=== PATIENT | female | born 1955 | race Caucasian/White ===

== ENCOUNTER 2019-04-25 11:53 | Emergency (ER) | payer BC ==
--- NOTE | 2019-04-25 12:00 | UC ---
Cardiac HPI - HPI Summary HPI Summary: 64 yo female presents, accompanied by , with various symptoms. She tells me that she has had chest pain "all the time" for months, but today became sharp on the right side around 1100. She also complains of epigastric pain, but is unable to describe what this feels like or when it began. She also complains of right thigh pain that is worse with movement. Also complains of b/l hand swelling that began this morning. She denies headache, dizziness, numbness, tingling, SOB, n/v/d/c, dysuria, back pain. - History of Current Complaint Stated Complaint: CHEST PAIN Time Seen by Provider: 04/25/19 11:59 Hx Obtained From: Patient Initial Severity: Moderate Current Severity: Moderate Pain Intensity: 5 - Allergy/Home Medications Allergies/Adverse Reactions: Allergies Allergy/AdvReac Type Severity Reaction Status Date / Time MS Metformin [Metformin] Allergy Diarrhea Verified 09/17/18 08:46 pollen extracts Allergy Runny Nose Verified 09/17/18 08:46 PMH/Surg Hx/FS Hx/Imm Hx Endocrine History: Diabetes, Dyslipidemia Cardiovascular History: Hypertension Psychological History: Anxiety - Surgical History Surgical History: Yes Surgery Procedure, Year, and Place: WISDOM TEETH - Family History Known Family History: Negative: Cardiac Disease, Hypertension, Diabetes - Social History Lives: With Family Alcohol Use: None Substance Use Type: None Smoking Status (MU): Never Smoked Tobacco Review of Systems All Other Systems Reviewed And Are Negative: No Constitutional: Positive: Negative Skin: Positive: Negative Eyes: Positive: Negative ENT: Positive: Negative Respiratory: Positive: Negative Cardiovascular: Positive: Chest Pain Gastrointestinal: Positive: Abdominal Pain Neurological: Positive: Negative Psychological: Positive: Negative Physical Exam - Summary Physical Exam Summary: GENERAL: NAD. WDWN. No pain distress. SKIN: No rashes, sores, or open wounds. NECK: Supple. Nontender. No lymphadenopathy. CHEST: CTAB. No r/r/w. No accessory muscle use. Breathing comfortably and in no distress. CV: RRR. Pulses intact. Brisk cap refill. ABDOMEN: Soft. Mild TTP epigastric region. No distention or guarding. No CVA tenderness. Bowel sounds present MSK: FROM and 5/5 strength throughout. No edema. NEURO: Alert. PSYCH: Age appropriate behavior. Triage Information Reviewed: Yes Vital Signs: Vital Signs: Temp Pulse Resp BP Pulse Ox 98.2 F 96 20 176/73 97 04/25/19 12:05 04/25/19 12:05 04/25/19 12:05 04/25/19 12:05 04/25/19 12:05 Vital Signs Reviewed: Yes Diagnostics - EKG Summary of EKG Findings: 95bpm NSR. No STEMI as read by Dr. Pappas. - Assessment/Plan Course Of Treatment: POC glucose 113. EKG as above. Given her diabetes, HTN, HLD, and multiple vague complaints including chest pain and epigastric pain - I recommended pt go to the ER for further evaluation for possible ACS. She declined ambulance transfer and her with her will drive her. - Clinical Impression Provider Diagnosis: Chest pain, Epigastric pain Discharge ED - Sign-Out/Discharge Documenting (check all that apply): Patient Departure All imaging exams completed and their final reports reviewed: No Studies - Discharge Plan Condition: Stable Disposition: HOME-RECOMMEND TO ED Referrals: Ilri Newell MD [Primary Care Provider] - Additional Instructions: Please go to the ER for further evaluation of your chest pain - Billing Disposition and Condition Condition: STABLE Disposition: Home-Recommend to ED
--- OUTSIDE RECORDS SUMMARY | 2019-04-25 12:00 | XMS REPORT | Continuity of Care Document ---
:1955 External Reference #:[id number] Author Name Manuel Jacob MD (transmitted by agent of provider Radha Santa) Address [address] [place] [id number] Care Team Providers Name Role Phone Ilir Newell MD - Family Care Team Information [employer] [phone] Medicine Problems Active Problems Provider Date Pain in calf Romie Ely MD Onset: 06/23/2016 Lumbar radiculopathy Romie Ely MD Onset: 06/23/2016 Social History Type Date Description Comments Sex Unknown ETOH Use Rarely consumes alcohol Tobacco Use Start: Unknown Patient has never smoked Recreational Drug Use Denies Drug Use Smoking Status Reviewed: 04/19/19 Patient has never smoked Exercise Type/Frequency Exercises regularly 4 days per week, [employer], 30 minute circuit, and 20 minutes of walking. 1 day at the [facility] for aerobics, pt starting a weigh loss program at [facility] . Allergies, Adverse Reactions, Alerts Active Allergies Reaction Severity Comments Date Metformin upset stomach, diarrhea 04/04/2016 Ibuprofen 08/13/2018 Medications Active Medications SIG Qnty Indications Ordering Date Provider Pioglitazone HCL 1 by mouth every 30tabs E11.65 Manuel Jacob, 15mg Tablets day MD Martinez Trulicity inject 1 dose 2ml E11.65 Manuel Jacob, 1.5mg/0.5ML subcutaneously once MD Martinez Solution Pen-Inject weekly Rosuvastatin Calcium 1 tablet once daily 30tabs Manuel Jacob, 20mg at bedtime. MD Martinez Tablets Lisinopril take by mouth daily 30tabs I10 Manuel Jacob, 10mg Tablets MD Martinez Onetouch Ultra Blue test once a day and 50units Manuel Jacob, Strips as needed 9 Zyrtec 1 po qd prn 30tabs Unknown 10mg Tablets 0 Toprol XL 1 po qd 30tabs Unknown 200mg Tablets ER 0 24HR Lexapro 1 tablet daily 90tabs Unknown 10mg Tablets 0 Calcium 2 po qd Unknown 500mg 0 Vitamin C 2 po qd 60units Unknown 500mg Chewtabs 0 Hydrochlorothiazide 1 tablet daily Unknown 25mg 0 Tablets Amlodipine Besylate Ilir Newell 10mg Dayron MD 0 Tablets Mrvze-3-[id number] Ethyl take 2 capsules Unknown Esters twice a day 0 1gm Capsules Ibuprofen as needed Unknown 200mg Tablets 0 Immunizations Description No Information Available Vital Signs Date Vital Result Comment 04/19/2019 12:59pm Height 63 inches 5'3" Weight 181.00 lb w/o shoes Heart Rate 91 /min BP Systolic Sitting 177 mmHg BP Diastolic Sitting 96 mmHg BMI (Body Mass Index) 32.1 kg/m2 08/13/2018 12:42pm Height 63 inches 5'3" Weight 209.00 lb w/shoes Heart Rate 90 /min BP Systolic Sitting 144 mmHg BP Diastolic Sitting 79 mmHg BMI (Body Mass Index) 37.0 kg/m2 Results Description No Information Available Procedures Description No Information Available Medical Devices Description No Information Available Encounters Description No Information Available Assessments Date Code Description Provider 04/19/2019 E11.65 Type 2 diabetes mellitus with hyperglycemia Manuel Jacob MD 04/19/2019 E78.5 Hyperlipidemia, unspecified Manuel Jacob MD 04/19/2019 I10 Essential (primary) hypertension Manuel Jacob MD Plan of Treatment 04/19/2019 - Manuel Jacob MDE11.65 Type 2 diabetes mellitus with hyperglycemiaInstructions:1. Continue current medications as prescribed. 2. Restart lisinopril 10mg daily for blood pressure. 3. Stop checking blood glucose daily. 4. We have refilled your medications for 6 months. 5. Follow- upwith Dr. Newell.E78.5 Hyperlipidemia, [id number] Essential (primary) hypertension Functional Status Description No Information Available Mental Status Description No Information Available Referrals Description No Information Available
--- OUTSIDE RECORDS SUMMARY | 2019-04-25 12:00 | XMS REPORT | Summary of Care ---
:1955 Author Organization [facility] Address [address] [facility] [place] [address] Care Team Providers Name Role Phone Ilir Newell MD Primary Care Provider Reason for Visit Reason Comments Follow Up Encounter Details Date Type Department Care Team Description 04/05/2019 Office Visit [facility], Non morbid obesity, unspecified obesity type (Primary Dx); Bariatrics - Nedra [place] MD Body mass index (BMI) of 34.0-34.9 in adult; [address] [facility] [address] [facility] Diabetes mellitus without complication (HCC); Street [place] [address] Essential hypertension [place] [address] Allergies Active Allergy Reactions Severity Noted Date Comments Flavoring Agent Rash 08/05/2018 Environmental Other 11/03/2018 Cough, runny nose Metformin GI Reaction 08/05/2018 documented as of this encounter (statuses as of 04/05/2019) Medications Medication Sig Dispensed Refills Start Date End Date Status [place]-3 1000 MG Oral Cap Take 2 Tabs by 0 Active mouth TWICE DAILY. escitalopram (LEXAPRO) Take 10 mg by 0 Active 10 MG Oral Tab mouth NEEDED. Rosuvastatin Calcium Take 20 mg by 0 Active (CRESTOR) 20 MG Oral Tab mouth DAILY. Coenzyme Q10 (CO Q 10 Take 1,000 mg by 0 Active PO) mouth DAILY. Lactobacillus Take by mouth 0 Active (ACIDOPHILUS PO) NEEDED. POTASSIUM GLUCONATE PO Take 99 mg by 0 Active mouth DAILY. amLodipine (NORVASC) 10 Take 10 mg by 0 Active MG Oral Tab mouth DAILY. lisinopril (PRINIVIL, Take 10 mg by 0 Active ZESTRIL) 10 MG Oral Tab mouth DAILY. pioglitazone (ACTOS) 15 Take 15 mg by 0 Active MG Oral Tab mouth DAILY. Metoprolol Succinate 200 Take 200 mg by 0 Active MG Oral Capsule ER 24 mouth DAILY. Hour Sprinkle CALCIUM PO Take 1,000 mg by 0 Active mouth DAILY. MAGNESIUM PO Take 1,000 mg by 0 Active mouth DAILY. Ascorbic Acid (VITAMIN Take 1,000 mg by 0 Active C) 100 MG Oral Chew Tab mouth DAILY. Cyanocobalamin (B-12) Take 1,000 mcg 0 Active 1000 MCG Oral Cap by mouth DAILY. Dulaglutide (TRULICITY) Inject beneath 0 Active 0.75 MG/0.5ML the skin. Subcutaneous Solution Pen-injector documented as of this encounter (statuses as of 04/05/2019) Active Problems No known active problemsdocumented as of this encounter (statuses as of 2018) Social History Tobacco Use Types Packs/Day Years Used Date Never Smoker Smokeless Tobacco: Never Used Alcohol Use Drinks/Week oz/Week Comments Not Currently Sex Assigned at Date Recorded Not on file Job Start Date Occupation Industry Not on file Not on file Not on file Travel History Travel Start Travel End No recent travel history available. documented as of this encounter Last Filed Vital Signs Vital Sign Reading Time Taken Comments Blood Pressure 122/68 04/05/2019 9:30 AM EST Pulse 80 04/05/2019 9:30 AM EST Temperature - - Respiratory Rate - - Oxygen Saturation 95% 04/05/2019 9:30 AM EST Inhaled Oxygen Concentration - - Weight 82.6 kg (182 lb) 04/05/2019 9:30 AM EST Height 154.9 cm (5' 1") 04/05/2019 9:30 AM EST Body Mass Index 34.39 04/05/2019 9:30 AM EST documented in this encounter Progress Notes Jaylen Munoz MD - 04/05/2019 10:40 AM EST PATIENT: Joyce Rodriguez : 1955 DATE OF SERVICE: 04/05/2019 REFERRING PRACTITIONER: Self-Referred PRIMARY CARE PROVIDER: Ilir Newell Chief Complaint Patient presents with Follow Up HISTORY OF PRESENT ILLNESS: Joyce Rodriguez is a 64-y.o. female who presents for follow up treatment of obesity and related diseases. She reports having had bronchitis for the past month or so. Her dietary compliance as reported is fair.. The patient is not skipping meals. She is keeping aconsistent food journal. She is eating about 1000 calories per day. She Is not generally getting adequate protein. Food choices are reasonable . She is not eating many veggies. The patient reports swimming once per week, using bicycle and doing some weight training at the gym. She gets to the gym about 4 times per week. Past Medical History: Diagnosis Date Arthritis Back pain Depression with anxiety Diabetes mellitus (HCC) High cholesterol Hypertension No past surgical history on file. Family History Problem Relation Age of Onset Hypertension Mother High Cholesterol Mother Stroke Mother High Cholesterol Father Stroke Father Social History Tobacco Use Smoking status: Never Smoker Smokeless tobacco: Never Used Substance Use Topics Alcohol use: Not Currently Current Outpatient Medications Medication Sig amLodipine (NORVASC) 10 MG Oral Tab Take 10 mg by mouth DAILY. Ascorbic Acid (VITAMIN C) 100 MG Oral Chew Tab Take 1,000 mg by mouth DAILY. CALCIUM PO Take 1,000 mg by mouth DAILY. Coenzyme Q10 (CO Q 10 PO) Take 1,000 mg by mouth DAILY. Cyanocobalamin (B-12) 1000 MCG Oral Cap Take 1,000 mcg by mouth DAILY. Dulaglutide (TRULICITY) 0.75 MG/0.5ML Subcutaneous Solution Pen-injector Inject beneath the skin. escitalopram (LEXAPRO) 10 MG Oral Tab Take 10 mg by mouth NEEDED. Lactobacillus (ACIDOPHILUS PO) Take by mouth NEEDED. lisinopril (PRINIVIL, ZESTRIL) 10 MG Oral Tab Take 10 mg by mouth DAILY. MAGNESIUM PO Take 1,000 mg by mouth DAILY. Metoprolol Succinate 200 MG Oral Capsule ER 24 Hour Sprinkle Take 200 mg by mouth DAILY. [place]-3 1000 MG Oral Cap Take 2 Tabs by mouth TWICE DAILY. pioglitazone (ACTOS) 15 MG Oral Tab Take 15 mg by mouth DAILY. POTASSIUM GLUCONATE PO Take 99 mg by mouth DAILY. Rosuvastatin Calcium (CRESTOR) 20 MG Oral Tab Take 20 mg by mouth DAILY. No current facility-administered medications for this visit. Allergies Allergen Reactions Butter Flavor [Flavoring Agent] Rash Environmental Other Cough, runny nose Metformin GI Reaction REVIEW OF SYSTEMS: CONSTITUTIONAL: Negative RESPIRATORY: Negative CARDIOVASCULAR: Negative GASTROINTESTINAL: Negative. GENITOURINARY:Negative MUSCULOSKELETAL: Negative NEUROLOGICAL: Negative. PSYCH: Negative. There are no exam notes on file for this visit. PHYSICAL EXAMINATION: VITALS: BP 122/68 | Pulse 80 | Ht 5' 1" (1.549 m) | Wt 182 lb (82.6 kg) | SpO2 95% | No | BMI 34.39 kg/m BODY COMPOSITION AND MEASUREMENTS: BODY COMPOSITION HISTORY Body Composition 01/07/2019 03/08/2019 04/05/2019 Weight 186 lb 9.6 oz 194 lb 11.2 oz 182 lb LEAN BODY MASS (lbs) 95.7 96.3 91.3 BODY FAT MASS (lbs) 90.9 98.4 90.7 BMI (Calculated) 35.26 36.79 34.39 Body Fat % 48.7 50.6 49.9 BASAL METABOLIC RATE (kcal) 1307 1313 1263 EXCESS BODY FAT (lbs) 62.4 69.7 63.5 VISCERAL FAT AREA (cm2) 220.2 234.1 224.4 LEAN BODY MASS DEFICIT (lbs) 0 0 0 NECK CIRCUMFERENCE (in) - - - WAIST CIRCUMFERENCE (in) - - - HIP CIRCUMFERENCE (in) - - - GENERAL: No acute distress; obese PULMONARY: Clear to auscultation bilaterally CARDIOVASCULAR: Regular rate and rhythm; no murmurs, no rubs, no gallops ABDOMEN: Soft, non tender, no organomegaly, no masses appreciated. truncal adiposity present MUSCULOSKELETAL: no clubbing, cyanosis or edema NEUROLOGICAL: Alert and oriented x 3 PSYCH: Appropriate mood and affect LABORATORY STUDIES: No results found for: TRIG, HDL, LDL, CCRP, VITD, TSH IMPRESSION: ICD-9-CM ICD-10-CM 1. Non morbid obesity, unspecified obesity type 278.00 E66.9 2. Body mass index (BMI) of 34.0-34.9 in adult V85.34 Z68.34 3. Diabetes mellitus without complication (HCC) 250.00 E11.9 4. Essential hypertension 401.9 I10 PLAN: Joyce Rodriguez is a 64-y.o. year-old female with Body mass index is 34.39 kg/m.. Obesity Class I Weight is decreased 12.7 lbs in the interim; this reflects a(n) decrease in lean body mass of 5.0 lbs (3.7 lbs of which was total body water) and decrease in fat mass of 7.7 lbs Continue with 1100 calories per day; 30 g protein per meal; 30 g carbs per meal Increasing protein and veggie intake discussed with patient Moderate intensity exercise for 30 minutes, at least 5 days per week Diabetes No lows Carb restriction and exercise as above No medication changes Hypertension Well controlled No medication changes at this time Follow up: 4 weeks Author: Jaylen Munoz MD 04/05/2019 11:35 documented in this encounter Plan of Treatment Date Type Specialty Care Team Description 05/04/2019 Office Visit Bariatrics Jaylen Munoz MD [address] [place] [address] [phone] Health Maintenance Due Date Last Done Comments Diabetic Eye Exam 1955 MEDICARE ANNUAL WELLNESS VISIT 1955 DTaP/Tdap/Td Vaccines (1 - 1964 Tdap) HIV SCREENING 1968 FOOT EXAM 1971 HEPATITIS C SCREENING 1993 MAMMOGRAM (SCREENING) 1993 Colonoscopy 2003 ZOSTER IMMUNIZATION SERIES (1 2003 of 2) FALL RISK ASSESSMENT 2018 OSTEOPOROSIS SCREENING 2018 PNEUMOCOCCAL 65+YRS (1 of 2 - 2018 PCV13) INFLUENZA VACCINE (#1) 2018 HEMOGLOBIN A1C 02/24/2019 11/24/2018, 09/06/2018 DEPRESSION SCREENING 08/21/2019 08/20/2018 LIPID DISORDER SCREENING 08/21/2019 08/20/2018 HEPATITIS A IMMUNIZATION Aged Out No longer eligible based SERIES on patient's age to complete this topic HPV IMMUNIZATION SERIES Aged Out No longer eligible based on patient's age to complete this topic MENINGOCOCCAL VACCINE IMM Aged Out No longer eligible based on patient's age to complete this topic documented as of this encounter Results Not on filedocumented in this encounter Visit Diagnoses Diagnosis Non morbid obesity, unspecified obesity type Body mass index (BMI) of 34.0-34.9 in adult Body Mass Index 34.0-34.9, adult Diabetes mellitus without complication (HCC) Type II or unspecified type diabetes mellitus without mention of complication, not stated as uncontrolled Essential hypertension Unspecified essential hypertension documented in this encounter Guarantor Name Account Type Relation to Date of Phone Billing Address Patient Tahir Rodriguez Personal/Famil 1955 [phone] [facility] [address] [phone] [place], [place] [address] (Work) [id number] documented as of this encounter
--- OUTSIDE RECORDS SUMMARY | 2019-04-25 12:00 | XMS REPORT ---
:1955 Author Organization [facility] Care Team Providers Name Role Phone JUDY NAQVI Primary Care Physician Unavailable Allergies, Adverse Reactions, Alerts Allergy Code CodeSystem Reaction Severity Criticality Status Start Substance Date Moderate Medications Medication Medication Medication Start Stop Route Dose Status Fill Code CodeSystem Date Date Instructions escitalopram 996947 RxNorm 2018-05 oral 10 mg active for 30 oxalate -20 tablet day(s) Abilify 007579 RxNorm 2018-08 oral 10 mg active for 30 -03 8-01 tablet day(s) Problems Problem Name Code CodeSystem Alternate Alternate Start End Status Narrative Code CodeSystem Date Date Schizoaffective 82764252 SNOMED-CT Active disorder, manic 3-22 type Relevant diagnostic tests/laboratory data Narrative No Information Procedures Procedure Code CodeSystem Target Date of Status Service Device Device Device Name Site Procedure Delivery Code Name UID Location Psychotherap [id number] SNOMED-CT () 2018-07-28 complete Mental y, 45 04 d Health- minutes with [facility] patient [address], [id number] [phone] Psychotherap [id number] SNOMED-CT () 2018-11-08 complete Mental y, 45 04 d Health- minutes with [facility] patient [address], [id number] [phone] Psychotherap [id number] SNOMED-CT () 2019-02-07 complete Mental y, 45 04 d Health- minutes with [facility] patient [address], [phone] Office or [id number] SNOMED-CT () 2019-04-04 complete Mental other 7 d Health- outpatient [facility] visit for [address], of an [facility] established [id number] patient, [id number] which requires at least 2 of these 3 orr components: An expanded problem focused history; An expanded problem focused examination; Medical decision making of low Office or [id number] SNOMED-CT () 2018-08-13 complete Mental other 7 d Health- outpatient Kyra visit for [address], [facility], established [phone] patient, [phone] which requires at least 2 of these 3 orr components: An expanded problem focused history; An expanded problem focused examination; Medical decision making of low Encounters/Encounter Diagnoses Encounter Encounter Diagnosis Diagnosis Name Diagnosis Date of Service Name Code Code CodeSystem Diagnosis Delivery Location Established [id number] Schizoaffective SNOMED-CT 2019-04-04 Behavioral patient 15-29 disorder, manic Health [facility] type Clinic [address] [place] [address], [phone] Vital Signs No Information Social History Element Description Description Start End Code CodeSystem AdditionalInfo Date Date SexAssignedAtBirth Female 1954-04 F AdministrativeGender 05-07 Hospital Discharge Instructions Reason For Referral Medical Equipment FDA Assessments
--- OUTSIDE RECORDS SUMMARY | 2019-04-25 12:01 | XMS REPORT | Summary of Care ---
:1955 Author Organization [facility] Address [address] [facility] [place] [address] Care Team Providers Name Role Phone Ilir Newell MD Primary Care Provider Reason for Visit Reason Comments Follow Up Encounter Details Date Type Department Care Team Description 03/08/2019 Office Visit [facility], Morbid obesity, unspecified obesity type (HCC) (Primary Dx); Bariatrics - Nedra York MD Body mass index (BMI) of 36.0-36.9 in adult; [address] [facility] [address] [facility] Diabetes mellitus type 2, uncontrolled, without complications (HCC); [address] [place] [address] Essential hypertension [place] [address] Allergies Active Allergy Reactions Severity Noted Date Comments Flavoring Agent Rash 08/05/2018 Environmental Other 11/03/2018 Cough, runny nose Metformin GI Reaction 08/05/2018 documented as of this encounter (statuses as of 03/08/2019) Medications Medication Sig Dispensed Refills Start Date End Date Status Weatherford-3 1000 MG Oral Cap Take 2 Tabs [...] as of this encounter (statuses as of 03/08/2019) Active Problems No known active problemsdocumented as [...] Sign Reading Time Taken Comments Blood Pressure 128/72 03/08/2019 1:09 PM EST Pulse 85 03/08/2019 1:09 PM EST Temperature - - Respiratory Rate - - Oxygen Saturation 98% 03/08/2019 1:09 PM EST Inhaled Oxygen Concentration - - Weight 88.3 kg (194 lb 11.2 oz) 03/08/2019 1:09 PM EST Height 154.9 cm (5' 1") 03/08/2019 1:09 PM EST Body Mass Index 36.79 03/08/2019 1:09 PM EST documented in this encounter Progress Notes Jaylen Munoz MD - 03/08/2019 1:00 PM EST PATIENT: Joyce Rodriguez : 1955 DATE OF SERVICE: 03/08/2019 REFERRING PRACTITIONER: Self-Referred PRIMARY CARE PROVIDER: Ilir [...] eating about 1000 calories per day. She is generally getting adequate protein. Food choices are reasonable but she is eating a lot of baked goods for snacks - sometimes up to three servings in a day. The patient reports swimming once per week, [...] Sprinkle Take 200 mg by mouth DAILY. Weatherford-3 1000 MG Oral Cap Take 2 Tabs [...] for this visit. PHYSICAL EXAMINATION: VITALS: BP 128/72 | Pulse 85 | Ht 5' 1" (1.549 m) | Wt 194 lb 11.2 oz (88.3 kg) | SpO2 98% | BMI 36.79 kg/m BODY COMPOSITION AND MEASUREMENTS: BODY COMPOSITION HISTORY Body Composition 11/03/2018 01/07/2019 03/08/2019 Weight 186 lb 11.2 oz 186 lb 9.6 oz 194 lb 11.2 oz LEAN BODY MASS (lbs) 99.7 95.7 96.3 BODY FAT MASS (lbs) 87.1 90.9 98.4 BMI (Calculated) 35.28 35.26 36.79 Body Fat % 46.6 48.7 50.6 BASAL METABOLIC RATE (kcal) 1347 1307 1313 EXCESS BODY FAT (lbs) 57.3 62.4 69.7 VISCERAL FAT AREA (cm2) 207.7 220.2 234.1 LEAN BODY MASS DEFICIT (lbs) 0 0 [...] CCRP, VITD, TSH IMPRESSION: ICD-9-CM ICD-10-CM 1. Morbid obesity, unspecified obesity type (HCC) 278.01 E66.01 2. Body mass index (BMI) of 36.0-36.9 in adult V85.36 Z68.36 3. Diabetes mellitus type 2, uncontrolled, without complications (HCC) 250.02 E11.65 4. Essential hypertension 401.9 I10 PLAN: Joyce Rodriguez is a 64-y.o. year-old female with Body mass index is 36.79 kg/m.. Obesity Class II Weight is increased 8.1 lbs in the interim; this reflects a(n) increase in lean body mass of 0.6 lbs(0.4 lbs of which was total body water) and increase in fat mass of 7.5 lbs Continue with 1100 calories per day; 30 g protein per meal; 30 g carbs per meal Moderate intensity exercise for 30 minutes, at least 5 days per week Diabetes Per patient report, A1c is at 6.1 (done last week She will work to decrease the simple carbs in her diet No lows Carb restriction and exercise as above Hypertension Well controlled No medication changes at this time Follow up: 4 weeks Author: Jaylen Munoz MD 03/08/2019 13:13 documented in this encounter Plan of Treatment Date Type Specialty Care Team Description 04/05/2019 Office Visit Bariatrics Jaylen Munoz MD [address] [place] [address] [phone] Health Maintenance Due Date Last Done Comments Diabetic Eye Exam 1955 MEDICARE ANNUAL WELLNESS VISIT 1955 HIV SCREENING 1968 FOOT EXAM 1971 HEPATITIS C SCREENING 1993 MAMMOGRAM (SCREENING) 1993 Colonoscopy 2003 ZOSTER IMMUNIZATION SERIES (1 of 2003 2) FALL RISK ASSESSMENT 2018 OSTEOPOROSIS SCREENING 2018 PNEUMOCOCCAL 65+YRS (1 of 2 - 2018 PCV13) HEMOGLOBIN A1C 12/07/2018 09/06/2018 INFLUENZA VACCINE (#1) 2018 DEPRESSION SCREENING 08/21/2019 08/20/2018 LIPID DISORDER SCREENING 08/21/2019 08/20/2018 HPV IMMUNIZATION SERIES Aged Out No longer eligible based on patient's age to complete this topic MENINGOCOCCAL VACCINE IMM Aged Out No longer eligible based on patient's age to complete this topic documented as of this encounter Results Not on filedocumented in this encounter Visit Diagnoses Diagnosis Morbid obesity, unspecified obesity type (HCC) - Primary Body mass index (BMI) of 36.0-36.9 in adult Body Mass Index 36.0-36.9, adult Diabetes mellitus type 2, uncontrolled, without complications (HCC) Essential hypertension Unspecified essential hypertension documented in this encounter Guarantor Name Account Type Relation to Date of Phone Billing Address Patient Tahir Rodriguez Personal/Famil 1955 [phone] [address] [facility] [address]) [id number] [place], [place] [address] (Work) [id number] documented as of this encounter
[2019-04-25 12:09] VITALS: BP 176/73
== END 2019-04-25 12:25 | disposition home health service (06) ==
LOC: UCEAST 11:53
DX: R07.9 Chest pain, unspecified (principal); R10.13 Epigastric pain; E11.9 Type 2 diabetes mellitus without complications; I10 Essential (primary) hypertension; R10.9 Unspecified abdominal pain; Z88.8 Allergy status to other drugs, medicaments and biological substances; Z91.09 Other allergy status, other than to drugs and biological substances
CPT/HCPCS: 93005; 99212; G0463

== ENCOUNTER 2019-04-25 13:00 | Emergency (ER) | payer BC ==
--- NOTE | 2019-04-25 13:23 | ED ---
HPI Chest Pain - HPI Summary HPI Summary: Pt is a 64 y/o F presenting to the ED with a chief complaint of chest pain initially onset this morning in the R side of her chest. She describes the pain as pressure rated 8/10, and reports headache, neck pain, and loose stools, as well as some shortness of breath from her medications. She denies cough, fever, nausea, and vomiting. - History of Current Complaint Chief Complaint: EDChestPainROMI Time Seen by Provider: 04/25/19 13:10 Hx Obtained From: Patient Onset/Duration: Started Hours Ago, Still Present Timing: Constant, Lasting Hours Initial Severity: Moderate Current Severity: Severe Pain Intensity: 8 Pain Scale Used: 0-10 Numeric Chest Pain Location: Right Anterior Chest Pain Radiates: No Character: Pressure/Squeezing Aggravating Factor(s): Nothing Alleviating Factor(s): Nothing Associated Signs and Symptoms: Positive: Chest Pain, Headaches, Shortness of Breath, Other: - neck pain. Negative: Fever, Nausea, Cough, Vomiting - Allergy/Home Medications Allergies/Adverse Reactions: Allergies Allergy/AdvReac Type Severity Reaction Status Date / Time MS Metformin [Metformin] Allergy Diarrhea Verified 09/17/18 08:46 pollen extracts Allergy Runny Nose Verified 09/17/18 08:46 Home Medications: Home Medications Dulaglutide [Trulicity] 1.5 mg SQ DAILY 04/25/19 [History Confirmed 04/25/19] Escitalopram Oxalate [Lexapro 10 mg] 10 mg PO DAILY 04/25/19 [History Confirmed 04/25/19] Lisinopril [Zestril] 10 mg PO DAILY 04/25/19 [History Confirmed 04/25/19] Metoprolol Tartrate 200 mg PO DAILY 04/25/19 [History Confirmed 04/25/19] Pioglitazone HCl 15 mg PO DAILY 04/25/19 [History Confirmed 04/25/19] PMH/Surg Hx/FS Hx/Imm Hx Previously Healthy: Yes Endocrine/Hematology History: Reports: Hx Diabetes Cardiovascular History: Reports: Hx Hypertension - ON MEDS Denies: Hx Pacemaker/ICD History: Denies: Hx Renal Disease Sensory History: Denies: Hx Hearing Aid Psychiatric History: Reports: Hx Bipolar Disorder Denies: Hx Panic Disorder - Cancer History Hx Chemotherapy: No Hx Radiation Therapy: No - Surgical History Surgery Procedure, Year, and Place: WISDOM TEETH Infectious Disease History: No Infectious Disease History: Denies: History Other Infectious Disease, Traveled Outside the [place] in Last 30 Days - Family History Known Family History: Negative: Cardiac Disease, Hypertension, Diabetes - Social History Alcohol Use: None Hx Substance Use: No Substance Use Type: Reports: None Hx Tobacco Use: No Smoking Status (MU): Never Smoked Tobacco Review of Systems Negative: Fever Positive: Chest Pain Positive: Shortness Of Breath. Negative: Cough Negative: Vomiting, Nausea Positive: Myalgia - neck pain Positive: Headache All Other Systems Reviewed And Are Negative: Yes Physical Exam - Summary Physical Exam Summary: VITAL SIGNS: Reviewed. GENERAL: Patient is an obese female who is lying comfortable in the stretcher. Patient is not in any acute respiratory distress. HEAD AND FACE: No signs of trauma. No ecchymosis, hematomas or skull depressions. No sinus tenderness.. EYES: PERRLA, EOMI x 2, No injected conjunctiva, no nystagmus. EARS: Hearing grossly intact. Ear canals and tympanic membranes are within normal limits. MOUTH: Oropharynx within normal limits. NECK: Supple, trachea is midline, no adenopathy, no JVD, no carotid bruit, no c- spine tenderness, neck with full ROM. CHEST: Some reproducible chest pain in the R side of her chest. LUNGS: Clear to auscultation bilaterally. No wheezing or crackles. CVS: Regular rate and rhythm, S1 and S2 present, no murmurs or gallops appreciated. ABDOMEN: Soft, non-tender. No signs of distention. No rebound, no guarding, and no masses palpated. Bowel sounds are normal. EXTREMITIES: FROM in all major joints, no edema, no cyanosis or clubbing. Reproducible pain in the R side of the neck. No C-spine tenderness. NEURO: Alert and oriented x 3. No acute neurological deficits. Speech is normal and follows commands. SKIN: Dry and warm. Triage Information Reviewed: Yes Vital Signs On Initial Exam: Initial Vitals Temp Pulse Resp BP Pulse Ox 98.7 F 96 19 179/84 98 04/25/19 13:06 04/25/19 13:06 04/25/19 13:06 04/25/19 13:06 04/25/19 13:06 Vital Signs Reviewed: Yes Procedures - Sedation Patient Received Moderate/Deep Sedation with Procedure: No Diagnostics - Vital Signs Vital Signs Temp Pulse Resp BP Pulse Ox 04/25/19 13:06 98.7 F 96 19 179/84 98 - Laboratory Result Diagrams: 04/25/19 13:16 04/25/19 13:16 Lab Statement: Any lab studies that have been ordered have been reviewed, and results considered in the medical decision making process. - Radiology CXR Radiology Interpretation Completed By: Radiologist Summary of Radiographic Findings: No active cardiopulmonary disease is noted. ED physician has reviewed this report. - EKG 1308 Cardiac Rate: NL - 84bpm EKG Rhythm: Sinus Rhythm ST Segment: Normal Ectopy: None EKG Comparison: No Significant Change Summary of EKG Findings: EKG at 1308 shows NSR at 84bpm with no ST elevations. Similar to previous on 12/25/08. Dr. Monzon has reviewed and interpreted this EKG. Chest Pain Course/Dx - Course Assessment/Plan: Pt is a 64 y/o F presenting to the ED with a chief complaint of chest pain initially onset this morning in the R side of her chest. She describes the pain as pressure rated 8/10, and reports headaches, neck pain, and loose stools, as well as some shortness of breath from her medications. She denies cough, fever, nausea, and vomiting. Blood work without any significant abnormality. EKG: Normal sinus rhythm with no evidence the patient. Chest x- ray impression: No acute pathology. In the Ed course she was given IVF, Benadryl, Reglan and toradol for her SCHWARZ. CXR impression: Negative for acute pathology. After medications, patient symptoms have improved. Patient reports that all symptoms have resolved. Patient Hear score is: 2 therefore, low suspicion for CAD. Patient is not hypoxic or tachycardic. Wells criteria 0. Therefore, no suspicion for PE. Patient has no abdominal bruit thus no suspicion for AAA. Patients pain does not radiate to the back and pain has resolved thus low suspicion for aortic dissection. I discussed all the findings and test results with the patient. Patient was instructed to return to the emergency room immediately if any of the symptoms return or worsen. Patient understands and agrees. Plan of care was discussed with the patient and patient understands and agrees. All questions were answered at patient satisfaction. There were no further complaints or concerns. PE before discharge : CVS: S1 and S2 present. No murmurs appreciated. Abdominal exam before discharge: Soft, non-tender. No signs of distention. No rebound no guarding, and no masses palpated. Bowel sounds are normal. Patient is alert and oriented x 3. Patient is hemodynamically stable. - Chest Pain Differential Diagnosis/HQI/PQRI: Acute NM, ACS, Angina, CHF, Chest Wall, GI Disease, Lower Respiratory Infection, Pulmonary Edema - Diagnoses Provider Diagnoses: Atypical chest pain, Headache Discharge ED - Sign-Out/Discharge Documenting (check all that apply): Patient Departure - Discharge Plan Condition: Stable Disposition: HOME Patient Education Materials: Chest Pain (ED) Referrals: Ilir Newell MD [Primary Care Provider] - Additional Instructions: Please follow up with your primary care provider in 1-3 days. Return to the emergency department with any new or worsening symptoms. - Billing Disposition and Condition Condition: STABLE Disposition: Home - Attestation Statements Document Initiated by Riddhiibkirk: Yes Documenting Scribe: Tegan Akers Provider For Whom [place] is Documenting (Include Credential): Brady Monzon MD. Scribe Attestation: Tegan Campo scribed for Brady Monzon MD. on 04/25/19 at 2036. Scribe Documentation Reviewed: Yes Provider Attestation: The documentation as recorded by the Tegan wright accurately reflects the service I personally performed and the decisions made by Brady rojas MD. Status of Scribe Document: Viewed
[2019-04-25 13:24] LABS: ABS Basophils 0.1 10^3/ul (0-0.2); ABS Eosinophils 0.2 10^3/ul (0-0.6); ABS Lymphocytes 2.3 10^3/ul (1.0-4.8); ABS Monocytes 0.6 10^3/ul (0-0.8); ABS Neutrophils 5.1 10^3/ul (1.5-7.7); Eosinophil % 2.2 %; Hematocrit 40 % (35-47); Hemoglobin 13.9 g/dL (12.0-16.0); Lymphocyte % 28.3 %; Mean Corpuscular HGB Conc 35 g/dL (31-36); Mean Corpuscular Hemoglobin 30 pg (27-31); Mean Corpuscular Volume 87 fL (80-97); Mean Platelet Volume 6.7 fL (7.4-10.4); Platelet Count 281 10^3/uL (150-450); Red Blood Count 4.63 10^6 /uL (3.70-4.87); Red Cell Distribution Width 14 % (10-15); White Blood Count 8.3 10^3/uL (3.5-10.8)
[2019-04-25 13:33] LABS: INR 1.02 (0.82-1.09)
[2019-04-25 13:45] LABS: Albumin 4.3 g/dL (3.2-5.2); Albumin/Globulin Ratio 1.4 (1-3); BUN/Creatinine Ratio 18.8 (8-20); Calcium 9.2 mg/dL (8.6-10.3); EGFR African American 112.3 (>60); EGFR Non-African American 92.8 (>60); Potassium 3.8 mmol/L (3.5-5.0); Total Bilirubin 0.5 mg/dL (0.2-1.0); Total Protein 7.3 g/dL (6.4-8.9)
[2019-04-25 13:47] LABS: Troponin I 0.01 ng/mL (<0.03)
[2019-04-25] MEDS ORDERED: diPHENhydraMINE IV* 50 MG/ML 1 ml VIAL (BENADRYL) SLOW PUSH ONE (16:26)
[2019-04-25] MEDS ORDERED: Metoclopramide IV* 5 MG/ML 2 ML VIAL IV SLOW PU ONE (16:26)
[2019-04-25] MEDS ORDERED: Ketorolac INJ* 30 MG/ML 1 ML VIAL IV PUSH ONE (16:26)
[2019-04-25] MEDS ORDERED: NS 0.9% 1000 ML** 1,000 ML IV ONE (16:27)
[2019-04-25 17:47] VITALS: BP 141/73
== END 2019-04-25 17:44 | disposition home or self-care (01) ==
LOC: ED 13:00
DX: R07.89 Other chest pain (principal); I10 Essential (primary) hypertension; R51 Headache; R06.02 Shortness of breath; M54.2 Cervicalgia; Z79.899 Other long term (current) drug therapy
CPT/HCPCS: 36415; 71046; 80053; 84484; 85025; 85610; 93005; 96361; 96374; 96375; 99283; J1200; J1885; J2765

== ENCOUNTER 2021-01-27 23:51 | Inpatient (IN) ==
[2021-01-28 01:00] LABS: ABS Basophils 0.1 10^3/ul (0-0.2); ABS Eosinophils 0.1 10^3/ul (0-0.6); ABS Monocytes 0.7 10^3/ul (0-0.8); ABS Neutrophils 8.1 10^3/ul (1.5-7.7); Eosinophil % 1.2 %; Hematocrit 32 % (35-47); Hemoglobin 11.2 g/dL (12.0-16.0); Lymphocyte % 17.8 %; Mean Corpuscular HGB Conc 35 g/dL (31-36); Mean Corpuscular Hemoglobin 29 pg (27-31); Mean Corpuscular Volume 84 fL (80-97); Mean Platelet Volume 6.4 fL (7.4-10.4); Platelet Count 306 10^3/uL (150-450); Red Blood Count 3.85 10^6 /uL (3.70-4.87); Red Cell Distribution Width 14 % (10-15)
[2021-01-28 01:15] LABS: Alcohol, S < 13 mg/dL (<13)
[2021-01-28 01:17] LABS: ALT 26 U/L (7-52); AST 70 U/L (13-39); Albumin 4.2 g/dL (3.2-5.2); Albumin/Globulin Ratio 1.6 (1-3); Alkaline Phosphatase 61 U/L (35-149); Blood Urea Nitrogen 14 mg/dL (6-24); CO2 Carbon Dioxide 34 mmol/L (22-32); Calcium 9.1 mg/dL (8.6-10.3); Chloride 80 mmol/L (101-111); Globulin 2.7 g/dL (2-4); Glucose 225 mg/dL (70-100); Magnesium 1.7 mg/dL (1.9-2.7); Sodium 124 mmol/L (135-145); Total Protein 6.9 g/dL (6.4-8.9)
[2021-01-28 01:24] LABS: Troponin I 0.05 ng/mL (<0.03)
[2021-01-28 01:30] LABS: Anion Gap 10 mmol/L (2-11)
[2021-01-28 01:31] LABS: Potassium 2.4 mmol/L (3.5-5.0)
[2021-01-28] MEDS ORDERED: Iodixanol (CONTRAST) 320 MG/ML 100 ML SDV IV ONE (01:32)
[2021-01-28] MEDS ORDERED: Potassium EFFERVES 25 meq TAB PO ONE (01:36)
[2021-01-28 02:55] LABS: Rapid COVID-19 Molecular Undetected (Undetected)
[2021-01-28 03:18] LABS: Urine Appearance Cloudy; Urine Bilirubin Negative (Negative); Urine Blood Negative (Negative); Urine Color Straw; Urine Glucose 1+(50 mg/dL) (Negative); Urine Ketones Negative (Negative); Urine Nitrite Negative (Negative); Urine Protein Negative (Negative); Urine Specific Gravity 1.025 (1.002-1.030); Urine Urobilinogen Negative (Negative)
[2021-01-28 03:33] LABS: Urine Benzodiazepine Screen None Detected (None Detect); Urine Cannabinoids Screen None Detected (None Detect); Urine Opiates Screen None Detected (None Detect)
[2021-01-28] MEDS ORDERED: Magnesium Sulfate 2 gm BAG 2 GM/50 ML BAG IVPB ONE (04:41)
[2021-01-28] MEDS: Enoxaparin 40 MG/0.4 ML SYR SUBCUT SCH (06:29)
[2021-01-28] MEDS: KCL 20 MEQ/100 ML IVPREMIX 20 MEQ/100 ML BAG IV SCH ×2 (06:29→09:42)
[2021-01-28] MEDS ORDERED: NS 0.9% 1000 ml BAG 1,000 ML IV SCH ×2 (06:45→13:51)
[2021-01-28] MEDS ORDERED: Dextrose 50% Syringe 50 ml 25 GM/50 ML SYRINGE IV PUSH PRN (06:51)
[2021-01-28 08:09] LABS: ABS Basophils 0.1 10^3/ul (0-0.2); ABS Lymphocytes 1.8 10^3/ul (1.0-4.8); ABS Monocytes 0.9 10^3/ul (0-0.8); Eosinophil % 0.2 %; Hematocrit 34 % (35-47); Hemoglobin 11.7 g/dL (12.0-16.0); Lymphocyte % 15.6 %; Mean Corpuscular HGB Conc 35 g/dL (31-36); Mean Corpuscular Hemoglobin 29 pg (27-31); Mean Corpuscular Volume 85 fL (80-97); Mean Platelet Volume 6.3 fL (7.4-10.4); Platelet Count 296 10^3/uL (150-450); Red Cell Distribution Width 14 % (10-15); White Blood Count 11.9 10^3/uL (3.5-10.8)
[2021-01-28 08:27] LABS: Blood Urea Nitrogen 7 mg/dL (6-24); CO2 Carbon Dioxide 25 mmol/L (22-32); Chloride 101 mmol/L (101-111); Glucose 118 mg/dL (70-100); Magnesium 1.6 mg/dL (1.9-2.7); Sodium 133 mmol/L (135-145)
[2021-01-28 08:32] LABS: Troponin I 0.07 ng/mL (<0.03)
[2021-01-28 08:56] LABS: Anion Gap 7 mmol/L (2-11); Calcium 5.9 mg/dL (8.6-10.3)
[2021-01-28] MEDS ORDERED: Metoprolol Succinate XL 200 mg TAB PO SCH (09:00)
[2021-01-28 12:22] LABS: Anion Gap 10 mmol/L (2-11); Blood Urea Nitrogen 9 mg/dL (6-24); CO2 Carbon Dioxide 34 mmol/L (22-32); Calcium 9.2 mg/dL (8.6-10.3); Chloride 82 mmol/L (101-111); Creatine Kinase 304 U/L (10-223); Glucose 143 mg/dL (70-100); Magnesium 2.2 mg/dL (1.9-2.7); Potassium 3.2 mmol/L (3.5-5.0); Sodium 126 mmol/L (135-145)
[2021-01-28 12:28] LABS: Troponin I 0.07 ng/mL (<0.03)
[2021-01-28] MEDS ORDERED: Potassium Chlor 20 meq TAB.ER PO ONE (13:50)
[2021-01-28] MEDS: KCL 10 MEQ/50 ML IVPREMIX 10 MEQ/50 ML BAG IV SCH ×2 (14:19→16:47)
[2021-01-29] MEDS: Enoxaparin 40 MG/0.4 ML SYR SUBCUT SCH (06:24)
[2021-01-29 06:52] LABS: Hematocrit 34 % (35-47); Hemoglobin 12.1 g/dL (12.0-16.0); Mean Corpuscular HGB Conc 36 g/dL (31-36); Mean Corpuscular Hemoglobin 30 pg (27-31); Mean Corpuscular Volume 85 fL (80-97); Mean Platelet Volume 6.5 fL (7.4-10.4); Platelet Count 312 10^3/uL (150-450); Red Blood Count 4.04 10^6 /uL (3.70-4.87); Red Cell Distribution Width 14 % (10-15); White Blood Count 9.7 10^3/uL (3.5-10.8)
[2021-01-29 07:05] LABS: Calcium 9.3 mg/dL (8.6-10.3); Magnesium 2.2 mg/dL (1.9-2.7); Potassium 4.2 mmol/L (3.5-5.0)
[2021-01-29] MEDS: NS 0.9% 1000 ml BAG 1,000 ML IV SCH ×2 (10:24→23:35)
[2021-01-29] MEDS ORDERED: Midazolam 5 mg/5 ml VIAL 1 mg/ml 5 ml VIAL (5 mg) ONE (14:08)
[2021-01-29] MEDS ORDERED: Lidocaine 1% VIAL 10 MG/ML VIAL ONE (14:09)
[2021-01-29] MEDS ORDERED: Heparin 2 UNITS/ML 1000 mls 3,000 ML IV ONE (14:09)
[2021-01-29] MEDS ORDERED: nitroGLYCERIN DRIP 25,000 MCG/250 ML BTL ONE (14:09)
[2021-01-29] MEDS ORDERED: fentaNYL 100 mcg/2 ml 50 MCG/ML VIAL ONE (14:09)
[2021-01-29] MEDS ORDERED: Heparin 1,000 UNIT/ML 10 ml (10,000 UNITS) CATHLAB/DIALYSIS ONE (14:09)
[2021-01-29] MEDS ORDERED: Iohexol 350 (CONTRAST) 200 ML MDV IV ONE (14:10)
[2021-01-29] MEDS ORDERED: niCARdipine 0.1MG/ML IVPREMIX 20 MG/200 ML BAG IV ONE (14:11)
[2021-01-29 18:43] LABS: C Reactive Protein 9.35 mg/L (<8.01)
[2021-01-30] MEDS: Enoxaparin 40 MG/0.4 ML SYR SUBCUT SCH (06:14)
[2021-01-30 07:09] LABS: Hematocrit 32 % (35-47); Hemoglobin 11.3 g/dL (12.0-16.0); Mean Corpuscular HGB Conc 35 g/dL (31-36); Mean Corpuscular Hemoglobin 30 pg (27-31); Mean Corpuscular Volume 86 fL (80-97); Mean Platelet Volume 6.3 fL (7.4-10.4); Platelet Count 288 10^3/uL (150-450); Red Blood Count 3.73 10^6 /uL (3.70-4.87); Red Cell Distribution Width 14 % (10-15)
[2021-01-30 07:16] LABS: Anion Gap 8 mmol/L (2-11); Blood Urea Nitrogen 14 mg/dL (6-24); CO2 Carbon Dioxide 30 mmol/L (22-32); Calcium 8.8 mg/dL (8.6-10.3); Chloride 93 mmol/L (101-111); Glucose 141 mg/dL (70-100); Potassium 3.6 mmol/L (3.5-5.0); Sodium 131 mmol/L (135-145)
[2021-01-30] MEDS ORDERED: Potassium Chlor 20 meq TAB.ER PO ONE (07:55)
[2021-01-30] MEDS ORDERED: Lactated Ringers 1000 ml BAG 1,000 ML IV ONE (08:00)
[2021-01-30] MEDS ORDERED: NS 0.9% 1000 ml BAG 1,000 ML IV SCH (08:15)
[2021-01-30 11:57] LABS: % Iron Saturation 14 % (15-55); Iron 47 ug/dL (50-212); Total Iron Binding Capacity 332 mcg/dL (250-450); Transferrin 237 mg/dL (203-362); Unsaturated Iron Binding < 317 ug/dL
[2021-01-30 12:11] LABS: Ferritin 188.1 ng/mL (11-307)
[2021-01-30 13:21] LABS: Calcium 9.3 mg/dL (8.6-10.3); Potassium 3.8 mmol/L (3.5-5.0)
[2021-01-30] MEDS ORDERED: Furosemide 20 mg/2 ml IV VIAL IV ONE (14:36)
[2021-01-31] MEDS: Enoxaparin 40 MG/0.4 ML SYR SUBCUT SCH (06:13)
[2021-01-31 06:49] LABS: Hematocrit 34 % (35-47); Hemoglobin 12.1 g/dL (12.0-16.0); Mean Corpuscular HGB Conc 35 g/dL (31-36); Mean Corpuscular Hemoglobin 30 pg (27-31); Mean Corpuscular Volume 86 fL (80-97); Mean Platelet Volume 6.3 fL (7.4-10.4); Platelet Count 307 10^3/uL (150-450); Red Cell Distribution Width 14 % (10-15); White Blood Count 8.8 10^3/uL (3.5-10.8)
[2021-01-31 07:01] LABS: CO2 Carbon Dioxide 28 mmol/L (22-32); Calcium 9.5 mg/dL (8.6-10.3); Chloride 94 mmol/L (101-111); Sodium 132 mmol/L (135-145)
[2021-01-31 07:07] LABS: Blood Urea Nitrogen 9 mg/dL (6-24); Glucose 156 mg/dL (70-100)
[2021-01-31 07:33] LABS: Anion Gap 10 mmol/L (2-11)
[2021-01-31 09:06] LABS: Magnesium 1.8 mg/dL (1.9-2.7); Potassium Redraw 4.1 mmol/L (3.5-5.0)
[2021-01-31] MEDS ORDERED: Magnesium Sulfate IV 1GM/100ML 1 GM/100 ML BAG IV ONE (09:35)
[2021-01-31 11:05] VITALS: BP 173/80
== END 2021-01-31 15:45 | disposition home or self-care (01) | DRG 425 ==
LOC: ED 23:51 → MEDTELE 01-28 04:45 → SUATTDRO 01-28 04:45 → INTOOBSV 01-28 04:45 → MEDTELE 01-28 08:57
PROVIDERS: ADMIT Internal Medicine; ATTEND Internal Medicine

== ENCOUNTER 2021-02-05 16:15 | Inpatient (IN) ==
[2021-02-05] MEDS ORDERED: NS 0.9% 1000 ml BAG 1,000 ML IV ONE (16:18)
[2021-02-05] MEDS ORDERED: Iodixanol (CONTRAST) 320 MG/ML 100 ML SDV IV ONE (16:43)
[2021-02-05 16:51] LABS: ABS Basophils 0.2 10^3/ul (0-0.2); ABS Eosinophils 0.1 10^3/ul (0-0.6); ABS Lymphocytes 1.7 10^3/ul (1.0-4.8); ABS Monocytes 0.7 10^3/ul (0-0.8); ABS Neutrophils 4.3 10^3/ul (1.5-7.7); Eosinophil % 1.8 %; Hematocrit 34 % (35-47); Lymphocyte % 24.4 %; Mean Corpuscular HGB Conc 36 g/dL (31-36); Mean Corpuscular Hemoglobin 30 pg (27-31); Mean Corpuscular Volume 84 fL (80-97); Mean Platelet Volume 6.4 fL (7.4-10.4); Platelet Count 339 10^3/uL (150-450); Red Blood Count 4.01 10^6 /uL (3.70-4.87); Red Cell Distribution Width 14 % (10-15)
[2021-02-05] MEDS ORDERED: LORazepam 2 mg VIAL 1 ml ONE (17:06)
[2021-02-05 17:09] LABS: ALT 27 U/L (7-52); AST 64 U/L (13-39); Albumin 4.3 g/dL (3.2-5.2); Albumin/Globulin Ratio 1.3 (1-3); Alkaline Phosphatase 56 U/L (35-149); Anion Gap 10 mmol/L (2-11); Blood Urea Nitrogen 10 mg/dL (6-24); CO2 Carbon Dioxide 29 mmol/L (22-32); Calcium 9.8 mg/dL (8.6-10.3); Chloride 91 mmol/L (101-111); Cholesterol 128 mg/dL; Globulin 3.3 g/dL (2-4); Glucose 195 mg/dL (70-100); HDL Cholesterol 40.8 mg/dL; LDL Cholesterol 47 mg/dL; Potassium 3.1 mmol/L (3.5-5.0); Sodium 130 mmol/L (135-145); Total Protein 7.6 g/dL (6.4-8.9); Triglycerides 200 mg/dL
[2021-02-05 17:10] LABS: Troponin I 0.02 ng/mL (<0.03)
[2021-02-05 17:15] LABS: Activated Partial Thrombo Time 30.4 seconds (26.0-38.0); INR 1.16 (0.86-1.15)
[2021-02-05] MEDS: KCL 20 MEQ/100 ML IVPREMIX 20 MEQ/100 ML BAG IV SCH ×2 (19:46→21:55)
[2021-02-05 20:03] LABS: C Reactive Protein 22.33 mg/L (<8.01); Magnesium 1.8 mg/dL (1.9-2.7)
[2021-02-05 20:10] LABS: Rapid COVID-19 Molecular Undetected (Undetected)
[2021-02-05] MEDS ORDERED: Magnesium Sulfate 2 gm BAG 2 GM/50 ML BAG IVPB ONE (20:38)
[2021-02-05 22:32] LABS: Alcohol, S < 13 mg/dL (<13)
[2021-02-05] MEDS ORDERED: Dextrose 50% Syringe 50 ml 25 GM/50 ML SYRINGE IV PUSH PRN (22:46)
[2021-02-06] MEDS: Enoxaparin 40 MG/0.4 ML SYR SUBCUT SCH ×2 (04:53→22:58)
[2021-02-06 06:07] LABS: ABS Basophils 0.2 10^3/ul (0-0.2); ABS Eosinophils 0.1 10^3/ul (0-0.6); ABS Lymphocytes 2.1 10^3/ul (1.0-4.8); ABS Monocytes 0.7 10^3/ul (0-0.8); ABS Neutrophils 3.6 10^3/ul (1.5-7.7); Eosinophil % 2.1 %; Hematocrit 36 % (35-47); Hemoglobin 12.6 g/dL (12.0-16.0); Lymphocyte % 31.2 %; Mean Corpuscular HGB Conc 35 g/dL (31-36); Mean Corpuscular Hemoglobin 30 pg (27-31); Mean Corpuscular Volume 85 fL (80-97); Mean Platelet Volume 6.3 fL (7.4-10.4); Platelet Count 353 10^3/uL (150-450); Red Blood Count 4.25 10^6 /uL (3.70-4.87); Red Cell Distribution Width 14 % (10-15); White Blood Count 6.8 10^3/uL (3.5-10.8)
[2021-02-06 06:20] LABS: Calcium 9.7 mg/dL (8.6-10.3); Potassium 4.3 mmol/L (3.5-5.0)
[2021-02-06] MEDS: CMCS:OMEGA-3 FATTY ACID 1000 mg(NF) PO SCH (08:50)
[2021-02-06] MEDS ORDERED: NISOLDIPINE 17 MG PO SCH (09:00)
[2021-02-07] MEDS: CMCS:OMEGA-3 FATTY ACID 1000 mg(NF) PO SCH ×3 (00:41→22:13)
[2021-02-07 06:56] LABS: Hematocrit 36 % (35-47); Hemoglobin 12.7 g/dL (12.0-16.0); Mean Corpuscular HGB Conc 35 g/dL (31-36); Mean Corpuscular Hemoglobin 30 pg (27-31); Mean Corpuscular Volume 85 fL (80-97); Mean Platelet Volume 6.3 fL (7.4-10.4); Platelet Count 432 10^3/uL (150-450); Red Blood Count 4.28 10^6 /uL (3.70-4.87); Red Cell Distribution Width 14 % (10-15); White Blood Count 9.9 10^3/uL (3.5-10.8)
[2021-02-07 07:10] LABS: Calcium 9.6 mg/dL (8.6-10.3); Potassium 3.4 mmol/L (3.5-5.0)
[2021-02-07] MEDS ORDERED: Potassium Chlor 20 meq TAB.ER PO ONE (07:33)
[2021-02-07] MEDS ORDERED: NS 0.9% 1000 ml BAG 1,000 ML IV SCH ×2 (07:45)
[2021-02-07] MEDS ORDERED: NISOLDIPINE 17 MG PO SCH (09:00)
[2021-02-07] MEDS: Enoxaparin 40 MG/0.4 ML SYR SUBCUT SCH (22:14)
[2021-02-08 05:51] LABS: Hematocrit 35 % (35-47); Mean Corpuscular HGB Conc 34 g/dL (31-36); Mean Corpuscular Hemoglobin 29 pg (27-31); Mean Corpuscular Volume 86 fL (80-97); Mean Platelet Volume 6.3 fL (7.4-10.4); Platelet Count 430 10^3/uL (150-450); Red Blood Count 4.09 10^6 /uL (3.70-4.87); Red Cell Distribution Width 14 % (10-15); White Blood Count 9.3 10^3/uL (3.5-10.8)
[2021-02-08 06:16] LABS: Magnesium 1.9 mg/dL (1.9-2.7)
[2021-02-08] MEDS ORDERED: Midazolam 5 mg/5 ml VIAL 1 mg/ml 5 ml VIAL (5 mg) ONE (08:17)
[2021-02-08] MEDS ORDERED: fentaNYL 100 mcg/2 ml 50 MCG/ML VIAL ONE (08:17)
[2021-02-08] MEDS ORDERED: Naloxone 0.4 mg VIAL 0.4 mg/ml 1 ml VIAL ONE (08:17)
[2021-02-08] MEDS ORDERED: Flumazenil 0.5 mg/5 ml 0.1 MG/ML 5 ml VIAL ONE (08:17)
[2021-02-08] MEDS: CMCS:OMEGA-3 FATTY ACID 1000 mg(NF) PO SCH ×2 (09:02→21:06)
[2021-02-08] MEDS ORDERED: Atropine 0.1 MG/ML 10 ml SYR (1 mg) ONE (10:09)
[2021-02-08] MEDS: Enoxaparin 40 MG/0.4 ML SYR SUBCUT SCH (21:07)
[2021-02-09] MEDS: CMCS:OMEGA-3 FATTY ACID 1000 mg(NF) PO SCH ×2 (09:54→20:32)
[2021-02-09] MEDS: Enoxaparin 40 MG/0.4 ML SYR SUBCUT SCH (20:32)
[2021-02-10 06:06] LABS: Hematocrit 35 % (35-47); Mean Corpuscular HGB Conc 34 g/dL (31-36); Mean Corpuscular Hemoglobin 30 pg (27-31); Mean Corpuscular Volume 86 fL (80-97); Mean Platelet Volume 6.4 fL (7.4-10.4); Platelet Count 416 10^3/uL (150-450); Red Blood Count 4.06 10^6 /uL (3.70-4.87); Red Cell Distribution Width 14 % (10-15); White Blood Count 9.3 10^3/uL (3.5-10.8)
[2021-02-10 06:33] LABS: Calcium 9.9 mg/dL (8.6-10.3); Magnesium 1.9 mg/dL (1.9-2.7)
[2021-02-10] MEDS ORDERED: Magnesium Sulfate IV 1GM/100ML 1 GM/100 ML BAG IV ONE (07:46)
[2021-02-10] MEDS: CMCS:OMEGA-3 FATTY ACID 1000 mg(NF) PO SCH ×2 (12:43→21:30)
[2021-02-10] MEDS: Enoxaparin 40 MG/0.4 ML SYR SUBCUT SCH (20:48)
[2021-02-10] MEDS ORDERED: Benzocaine/Menthol LOZ PO ONE (21:23)
[2021-02-11] MEDS ORDERED: Benzocaine/Menthol LOZ PO PRN (03:39)
[2021-02-11 06:07] LABS: Hematocrit 33 % (35-47); Hemoglobin 11.2 g/dL (12.0-16.0); Mean Corpuscular HGB Conc 34 g/dL (31-36); Mean Corpuscular Hemoglobin 29 pg (27-31); Mean Corpuscular Volume 87 fL (80-97); Mean Platelet Volume 6.3 fL (7.4-10.4); Platelet Count 389 10^3/uL (150-450); Red Blood Count 3.82 10^6 /uL (3.70-4.87); Red Cell Distribution Width 14 % (10-15); White Blood Count 8.1 10^3/uL (3.5-10.8)
[2021-02-11 06:25] LABS: Calcium 9.1 mg/dL (8.6-10.3); Magnesium 1.9 mg/dL (1.9-2.7); Potassium 3.6 mmol/L (3.5-5.0)
[2021-02-11] MEDS: CMCS:OMEGA-3 FATTY ACID 1000 mg(NF) PO SCH ×2 (09:44→20:41)
[2021-02-11] MEDS ORDERED: Potassium Chlor 20 meq TAB.ER PO ONE (11:07)
[2021-02-11] MEDS ORDERED: Magnesium Sulf 4 GM/100 ML IV 4,000 MG/100 ML BAG IVPB ONE (12:00)
[2021-02-11 20:15] LABS: Anaplasma phagocytophilum Negative (Negative); B. miyamotoi PCR, B Negative (Negative); Babesia divergens/MO-1 Negative (Negative); Babesia ducani Negative (Negative); Ehrlichia chaffeensis Negative (Negative); Ehrlichia ewingii/canis Negative (Negative); Ehrlichia muris eauclairensis Negative (Negative)
[2021-02-11 20:15] LABS: Anaplasma phagocytophilum Negative (Negative); B. miyamotoi PCR, B Negative (Negative); Babesia divergens/MO-1 Negative (Negative); Babesia ducani Negative (Negative); Ehrlichia chaffeensis Negative (Negative); Ehrlichia ewingii/canis Negative (Negative); Ehrlichia muris eauclairensis Negative (Negative)
[2021-02-11] MEDS: Enoxaparin 40 MG/0.4 ML SYR SUBCUT SCH (20:41)
[2021-02-12 07:03] LABS: ABS Basophils 0.1 10^3/ul (0-0.2); ABS Eosinophils 0.2 10^3/ul (0-0.6); ABS Lymphocytes 2.2 10^3/ul (1.0-4.8); ABS Monocytes 0.6 10^3/ul (0-0.8); ABS Neutrophils 3.7 10^3/ul (1.5-7.7); Eosinophil % 2.8 %; Hematocrit 32 % (35-47); Hemoglobin 11.5 g/dL (12.0-16.0); Lymphocyte % 32.5 %; Mean Corpuscular HGB Conc 35 g/dL (31-36); Mean Corpuscular Hemoglobin 30 pg (27-31); Mean Corpuscular Volume 86 fL (80-97); Mean Platelet Volume 6.4 fL (7.4-10.4); Platelet Count 384 10^3/uL (150-450); Red Blood Count 3.79 10^6 /uL (3.70-4.87); Red Cell Distribution Width 14 % (10-15); White Blood Count 6.8 10^3/uL (3.5-10.8)
[2021-02-12 07:16] LABS: Magnesium 2.2 mg/dL (1.9-2.7); Potassium 4.2 mmol/L (3.5-5.0)
[2021-02-12] MEDS ORDERED: ceFAZolin 2 GM in NS PREMIX 2 GM/100 ML BAG IVPB ONE (08:09)
[2021-02-12] MEDS ORDERED: ceFAZolin VIAL 1 GM in NS 0.9% 50 ML 50 ML IVPB ONE (08:09)
[2021-02-12] MEDS ORDERED: NS 0.9% 1000 ml BAG 1,000 ML IV SCH (08:15)
[2021-02-12] MEDS ORDERED: ceFAZolin VIAL 1 GM in NS *SYRINGE* 10 ML IVPB ONE (10:30)
[2021-02-12] MEDS ORDERED: ceFAZolin 1 GM ADVAN 1 GM ADDV.VIAL IVPB ONE (10:47)
[2021-02-12] MEDS ORDERED: Ondansetron 4 mg VIAL 2 MG/ML 2 ml VIAL ONE (11:10)
[2021-02-12] MEDS ORDERED: Propofol 10 MG/ML 20 ML BTL ONE (11:10)
[2021-02-12] MEDS ORDERED: Phenylephrine IV 10 MG/ML 1 ml VIAL ONE (11:10)
[2021-02-12] MEDS ORDERED: Lidocaine 2% PF 5 ML VIAL ONE (11:10)
[2021-02-12] MEDS ORDERED: EPHEDrine (Pressors) 50 MG/ML VIAL ONE (11:10)
[2021-02-12] MEDS ORDERED: Midazolam 5 mg/5 ml VIAL 1 mg/ml 5 ml VIAL (5 mg) ONE (11:11)
[2021-02-12] MEDS ORDERED: Ketamine HCL 50 mg/ml 10 ml VIAL (500 MG) ONE (11:11)
[2021-02-12] MEDS ORDERED: fentaNYL 100 mcg/2 ml 50 MCG/ML VIAL ONE (11:11)
[2021-02-12] MEDS ORDERED: Lidocaine 1% VIAL 10 MG/ML VIAL ONE (11:40)
[2021-02-12] MEDS: CMCS:OMEGA-3 FATTY ACID 1000 mg(NF) PO SCH ×2 (14:29→23:34)
[2021-02-12] MEDS: Enoxaparin 40 MG/0.4 ML SYR SUBCUT SCH (23:34)
[2021-02-13 06:22] LABS: Hematocrit 33 % (35-47); Hemoglobin 11.2 g/dL (12.0-16.0); Mean Corpuscular HGB Conc 34 g/dL (31-36); Mean Corpuscular Hemoglobin 29 pg (27-31); Mean Corpuscular Volume 87 fL (80-97); Mean Platelet Volume 6.3 fL (7.4-10.4); Platelet Count 384 10^3/uL (150-450); Red Blood Count 3.82 10^6 /uL (3.70-4.87); Red Cell Distribution Width 14 % (10-15)
[2021-02-13 06:35] LABS: Calcium 8.8 mg/dL (8.6-10.3); Magnesium 2.1 mg/dL (1.9-2.7); Potassium 4.4 mmol/L (3.5-5.0)
[2021-02-13] MEDS: CMCS:OMEGA-3 FATTY ACID 1000 mg(NF) PO SCH ×2 (10:08→21:24)
[2021-02-13] MEDS: Enoxaparin 40 MG/0.4 ML SYR SUBCUT SCH (22:30)
[2021-02-14] MEDS: CMCS:OMEGA-3 FATTY ACID 1000 mg(NF) PO SCH ×2 (07:40→21:25)
[2021-02-14] MEDS: Enoxaparin 40 MG/0.4 ML SYR SUBCUT SCH (21:25)
[2021-02-15] MEDS: CMCS:OMEGA-3 FATTY ACID 1000 mg(NF) PO SCH (10:58)
[2021-02-15 19:00] VITALS: BP 163/72
== END 2021-02-15 17:00 | disposition home health service (06) | DRG 26 ==
LOC: ED 16:15 → EDHOLD 23:20 → SUATTDRO 23:20 → MEDTELE 02-07 00:52
PROVIDERS: ADMIT Hospitalist; ATTEND Internal Medicine